=== PATIENT | male | born 1925 | race Caucasian/White ===

== ENCOUNTER 2016-03-11 09:22 | Outpatient (CLI) | payer MEDICARE, OTHER | END 2016-03-11 09:23 | disposition home or self-care (01) | DX: R10.2 Pelvic and perineal pain (principal) ==

== ENCOUNTER 2016-07-19 08:38 | Outpatient (CLI) | payer MEDICARE, OTHER ==
[2016-07-19 09:18] LABS: PT - PROTHROMBIN TIME 11.4 secs (9.9-12.6)
== END 2016-07-19 08:39 | disposition home or self-care (01) ==
LOC: LAB 08:38
PROVIDERS: ATTEND Pharmacist Pharmacotherapy
DX: Z79.01 Long term (current) use of anticoagulants (principal)
CPT/HCPCS: 36415; 85610

== ENCOUNTER 2016-07-21 15:14 | Outpatient (CLI) | payer MEDICARE, OTHER ==
[2016-07-21 15:44] LABS: PT - PROTHROMBIN TIME 11.5 secs (9.9-12.6)
== END 2016-07-21 15:15 | disposition home or self-care (01) ==
LOC: LAB 15:14
PROVIDERS: ATTEND Pharmacist Pharmacotherapy
DX: Z79.01 Long term (current) use of anticoagulants (principal)
CPT/HCPCS: 36415; 85610

== ENCOUNTER 2016-07-25 09:53 | Outpatient (CLI) | payer MEDICARE, OTHER ==
[2016-07-25 10:13] LABS: INR 1.4 (0.8-1.2); PT - PROTHROMBIN TIME 15.6 secs (9.9-12.6)
== END 2016-07-25 09:54 | disposition home or self-care (01) ==
LOC: LAB 09:53
PROVIDERS: ATTEND Pharmacist Pharmacotherapy
DX: Z79.01 Long term (current) use of anticoagulants (principal)
CPT/HCPCS: 36415; 85610

== ENCOUNTER 2016-07-29 09:53 | Outpatient (CLI) | payer MEDICARE, OTHER ==
[2016-07-29 10:10] LABS: INR 1.4 (0.8-1.2); PT - PROTHROMBIN TIME 16.1 secs (9.9-12.6)
== END 2016-07-29 09:54 | disposition home or self-care (01) ==
LOC: LAB 09:53
PROVIDERS: ATTEND Pharmacist Pharmacotherapy
DX: Z79.01 Long term (current) use of anticoagulants (principal)
CPT/HCPCS: 36415; 85610

== ENCOUNTER 2016-08-01 10:01 | Outpatient (CLI) | payer MEDICARE, OTHER ==
[2016-08-01 10:35] LABS: INR 2.1 (0.8-1.2); PT - PROTHROMBIN TIME 23.4 secs (9.9-12.6)
== END 2016-08-01 10:02 | disposition home or self-care (01) ==
LOC: LAB 10:01
PROVIDERS: ATTEND Pharmacist Pharmacotherapy
DX: Z79.01 Long term (current) use of anticoagulants (principal)
CPT/HCPCS: 36415; 85610

== ENCOUNTER 2016-08-04 08:35 | Outpatient (CLI) | payer MEDICARE, OTHER ==
[2016-08-04 09:01] LABS: INR 2.6 (0.8-1.2); PT - PROTHROMBIN TIME 29.3 secs (9.9-12.6)
== END 2016-08-04 08:36 | disposition home or self-care (01) ==
LOC: LAB 08:35
PROVIDERS: ATTEND Pharmacist Pharmacotherapy
DX: Z79.01 Long term (current) use of anticoagulants (principal)
CPT/HCPCS: 36415; 85610

== ENCOUNTER 2016-08-08 09:29 | Outpatient (CLI) | payer MEDICARE, OTHER ==
[2016-08-08 10:00] LABS: INR 2.5 (0.8-1.2); PT - PROTHROMBIN TIME 28.5 secs (9.9-12.6)
== END 2016-08-08 09:30 | disposition home or self-care (01) ==
LOC: LAB 09:29
PROVIDERS: ATTEND Pharmacist Pharmacotherapy
DX: Z79.01 Long term (current) use of anticoagulants (principal)
CPT/HCPCS: 36415; 85610

== ENCOUNTER 2016-08-12 09:43 | Outpatient (CLI) | payer MEDICARE, OTHER ==
[2016-08-12 11:01] LABS: INR 2.8 (0.8-1.2); PT - PROTHROMBIN TIME 31.7 secs (9.9-12.6)
== END 2016-08-12 09:44 | disposition home or self-care (01) ==
LOC: LAB 09:43
PROVIDERS: ATTEND Pharmacist Pharmacotherapy
DX: Z79.01 Long term (current) use of anticoagulants (principal)
CPT/HCPCS: 36415; 85610

== ENCOUNTER 2016-08-19 10:04 | Outpatient (CLI) | payer MEDICARE, OTHER ==
[2016-08-19 10:39] LABS: INR 2.8 (0.8-1.2); PT - PROTHROMBIN TIME 31.7 secs (9.9-12.6)
== END 2016-08-19 10:05 | disposition home or self-care (01) ==
LOC: LAB 10:04
PROVIDERS: ATTEND Pharmacist Pharmacotherapy
DX: Z79.01 Long term (current) use of anticoagulants (principal)
CPT/HCPCS: 36415; 85610

== ENCOUNTER 2016-08-26 08:40 | Outpatient (CLI) | payer MEDICARE, OTHER ==
[2016-08-26 09:06] LABS: INR 2.2 (0.8-1.2); PT - PROTHROMBIN TIME 24.3 secs (9.9-12.6)
== END 2016-08-26 08:41 | disposition home or self-care (01) ==
LOC: LAB 08:40
PROVIDERS: ATTEND Pharmacist Pharmacotherapy
DX: Z79.01 Long term (current) use of anticoagulants (principal)
CPT/HCPCS: 36415; 85610

== ENCOUNTER 2016-09-09 08:25 | Outpatient (CLI) | payer MEDICARE, OTHER ==
[2016-09-09 09:07] LABS: INR 1.8 (0.8-1.2); PT - PROTHROMBIN TIME 20.6 secs (9.9-12.6)
== END 2016-09-09 08:26 | disposition home or self-care (01) ==
LOC: LAB 08:25
PROVIDERS: ATTEND Pharmacist Pharmacotherapy
DX: Z79.01 Long term (current) use of anticoagulants (principal)
CPT/HCPCS: 36415; 85610

== ENCOUNTER 2016-09-23 09:01 | Outpatient (CLI) | payer MEDICARE, OTHER ==
[2016-09-23 09:31] LABS: PT - PROTHROMBIN TIME 22.1 secs (9.9-12.6)
== END 2016-09-23 09:02 | disposition home or self-care (01) ==
LOC: LAB 09:01
PROVIDERS: ATTEND Pharmacist Pharmacotherapy
DX: Z79.01 Long term (current) use of anticoagulants (principal)
CPT/HCPCS: 36415; 85610